=== PATIENT | female | born 1970 | race Caucasian/White ===

== ENCOUNTER 2017-04-22 01:29 | Emergency (ER) | payer MEDICAID ==
[2017-04-22] MEDS ORDERED: diphenhydrAMINE HCL 50 MG/ML VIAL IV ONE (01:57)
[2017-04-22] MEDS ORDERED: METHYLPREDNISOLONE SOD SUCC/PF 125 MG/2 ML VIAL IV ONE (01:57)
[2017-04-22] MEDS ORDERED: KETOROLAC TROMETHAMINE 30 MG/ML VIAL IV ONE (01:57)
[2017-04-22] MEDS ORDERED: NORMAL SALINE 1,000 ML IV ONE (01:57)
[2017-04-22] MEDS ORDERED: PROMETHAZINE HCL 25 MG in DEXTROSE 5 % IN WATER 50 ML IV ONE ×2 (01:57)
--- NOTE | 2017-04-22 02:01 | ERNOTE ---
Headache ER HPI - Narrative Date of Service: 04/22/17 - General Presenting Symptoms: headache Time Seen by Provider: 04/22/17 01:40 Source: patient - Immun/Allergies/Home Medications Immunizations: IMMUNIZATION HX Immunizations Up to Date Yes History of Influenza Vaccine No Hx Pneumococcal Vaccination No Allergies/Adverse Reactions: Allergies No Known Allergies Allergy (Unverified 04/22/17 01:43) Home Medications: HOME MEDICATIONS Acetaminophen with Codeine [Tylenol-Codeine 300 MG/30 MG] 2 each PO Q4H PRN [Last Taken Unknown] Cholecalciferol (Vitamin D3) [Vitamin D] 2,000 unit PO DAILY 12/31/12 [Last Taken 01/08/15 07:00 2000U] Multivitamin [Multivitamins] 1 each PO DAILY 12/31/12 [Last Taken 01/08/15 08: 00 1 tab] Promethazine HCl [Phenergan (Promethazine)] 25 mg PO Q4H PRN 12/31/12 [Last Taken 01/08/15 02:30 25mg] Nortriptyline HCl [Pamelor] 100 mg PO DAILY 11/27/14 [Last Taken 01/07/15 100mg] clonazePAM [Klonopin] 0.5 mg PO DAILY PRN 11/27/14 [Last Taken 01/07/15 20:00 .5mg] Methocarbamol [Robaxin] 750 mg PO Q4H PRN 08/28/15 [Last Taken Unknown] Botox 10/07/15 [Last Taken Unknown] OXcarbazepine [Trileptal] 300 mg PO BID 04/22/17 [Last Taken Unknown] - History of Present Illness Narrative: This is a 46-year-old female with a history of chronic daily migraines who comes to the emergency department with a primarily right sided retro-orbital headache. The patient states that the headache is been there for "years" but says that it has gotten really bad over the last 24 hours. The patient does have sensitivity to light. She has no nausea or vomiting. The patient had Botox injections of suboccipital muscles as well as shoulder muscles last week. Typically at home she uses Tylenol with codeine, Compazine, Robaxin to help with her symptoms. This has not helped her this time. No recent trauma. She denies any numbness or tingling. This is exactly the same quality as her previous headaches. Review of Systems - Review of Systems Constitutional: Present: no symptoms reported EYE: Present: no symptoms reported ENT: Present: no symptoms reported Respiratory: Present: no symptoms reported Cardiology: Present: no symptoms reported Gastrointestinal/Abdominal: Present: no symptoms reported Genitourinary: Present: no symptoms reported Musculoskeletal: Present: no symptoms reported Skin: Present: no symptoms reported Neurological: Present: no symptoms reported Endocrine: Present: no symptoms reported Hematologic/Lymphatic: Present: no symptoms reported Psych: Present: no symptoms reported All Other Systems: All systems neg except as marked - Patient's Past Medical History Patient History - Medical: Anxiety, Depression, Headache, Migraines Patient History - Cardiac/Respiratory: No pertinent hx Patient History - Cancer: No Hx of Cancer Patient History - Surgical Procedures: Cholecystectomy, Hysterectomy Patient History - Other: None - Family History Mother Family History - Medical: Diabetes Type 2 Family History - Cardiac/Respiratory: No pertinent hx Father Family History - Medical: Other Family History - Cardiac/Respiratory: No pertinent hx - Social History Living Situations: home Abuse History: No History of abuse Psych History: Hx of Anxiety, Hx of Depression Smoking Status: Former smoker Have you smoked in the past 12 months: No Do you dip or chew tobacco: No Alcohol Use: occasionally Drug Use: none - Immunizations Immunizations Up to Date: Yes Hx Pneumococcal Vaccination: No History of Influenza Vaccine: No Physical Exam - Physical Exam General Appearance: Present: wd/wn, alert, no apparent distress Head Exam: Present: normal inspection, no evidence of injury Eye Exam: Normal inspection: bilateral, PERRL: bilateral, EOMI: bilateral Ears, Nose, Throat: Present: normal ENT inspection, normal pharynx Neck: Present: normal inspection, nontender, other - the patient has suboccipital tender points right greater than left. Palpation reproduces the patient's headache with a retro-orbital component Respiratory: Present: no respiratory distress, normal breath sounds, no accessory muscle use, lungs clear Cardiovascular/Chest: Present: regular rate, rhythm, no murmur Gastrointestinal/Abdominal: Present: normal bowel sounds, nontender, nondistended, soft Rectal Exam: Present: nontender Back Exam: Present: normal inspection, normal range of motion Extremity Exam: Present: normal inspection, non-tender Neurological Exam: Present: alert, oriented, normal mood/affect Skin Exam: Present: normal color, warm/dry Lymphatic Exam: Present: no adenopathy ED Progress - Vital Signs Patient's Vital Signs:: I have reviewed the patient's vital signs. Vital Signs: Vital Signs 04/22/17 01:37 Temperature 37.2 C Pulse Rate 100 Respiratory 16 Rate Blood Pressure 153/99 O2 Sat by Pulse 95 Oximetry - Progress/Reassessment Chief Complaint: Headache Progress:: Improved Progress Note-Subjective: 04/22/17 03:00 The patient states that her headache is now approximately 90% resolved. She says she would like to go home and we will see if she continues to improve while she is at home. I've told her that if she develops new or worsening symptoms she should return to the ER. Departure Clinical Impression: Migraine, Migraine - Departure Disposition: Home self-care Condition: Stable Instructions: Migraine Headache, [id number] Additional Instructions: The medications that he received here in the emergency Department R Benadryl 50 mg intravenously Toradol 30 mg intravenously Solu-Medrol 125 mg intravenously X Compazine 25 mg IV. I did review these medicines and dosages so that in the future you can receive the same medicines as they seem to have done so well. Carlos Manuel migraine specialist and set up a follow-up appointment Return to the ER for any new or worrisome symptoms. Referrals: Augustine Pereira MD [Primary Care Provider] -
[2017-04-22] MEDS ORDERED: diphenhydrAMINE HCL 50 MG/ML VIAL ONE (02:16)
[2017-04-22] MEDS ORDERED: KETOROLAC TROMETHAMINE 30 MG/ML VIAL ONE (02:17)
[2017-04-22] MEDS ORDERED: METHYLPREDNISOLONE SOD SUCC/PF 125 MG/2 ML VIAL ONE (02:17)
[2017-04-22 03:00] VITALS: BP 150/86
== END 2017-04-22 03:21 | disposition home or self-care (01) ==
LOC: ER 01:29
DX: G43.909 Migraine, unspecified, not intractable, without status migrainosus (principal)

== ENCOUNTER 2017-04-27 05:23 | Emergency (ER) | payer MEDICAID ==
[2017-04-27] MEDS ORDERED: NORMAL SALINE 1,000 ML IV ONE (05:38)
[2017-04-27] MEDS ORDERED: KETOROLAC TROMETHAMINE 30 MG/ML VIAL IV ONE (05:38)
[2017-04-27] MEDS ORDERED: METHYLPREDNISOLONE SOD SUCC/PF 125 MG/2 ML VIAL IV ONE (05:38)
[2017-04-27] MEDS ORDERED: METHYLPREDNISOLONE SOD SUCC/PF 125 MG/2 ML VIAL ONE (05:47)
[2017-04-27] MEDS ORDERED: KETOROLAC TROMETHAMINE 30 MG/ML VIAL ONE (05:47)
--- NOTE | 2017-04-27 06:03 | ERNOTE ---
Headache ER HPI - General Presenting Symptoms: "migraine" Time Seen by Provider: 04/27/17 05:36 Source: patient Exam Limitations: no limitations - Immun/Allergies/Home Medications Immunizations: IMMUNIZATION HX Immunizations Up to Date Yes History of Influenza Vaccine No Hx Pneumococcal Vaccination No Allergies/Adverse Reactions: Allergies No Known Allergies Allergy (Verified 04/27/17 05:34) Home Medications: HOME MEDICATIONS Acetaminophen with Codeine [Tylenol-Codeine 300 MG/30 MG] 2 each PO Q4H PRN [Last Taken Unknown] Cholecalciferol (Vitamin D3) [Vitamin D] 2,000 unit PO DAILY 12/31/12 [Last Taken 01/08/15 07:00 2000U] Multivitamin [Multivitamins] 1 each PO DAILY 12/31/12 [Last Taken 01/08/15 08: 00 1 tab] Promethazine HCl [Phenergan (Promethazine)] 25 mg PO Q4H PRN 12/31/12 [Last Taken 01/08/15 02:30 25mg] Nortriptyline HCl [Pamelor] 100 mg PO DAILY 11/27/14 [Last Taken 01/07/15 100mg] clonazePAM [Klonopin] 0.5 mg PO DAILY PRN 11/27/14 [Last Taken 01/07/15 20:00 .5mg] Methocarbamol [Robaxin] 750 mg PO Q4H PRN 08/28/15 [Last Taken Unknown] Botox 10/07/15 [Last Taken Unknown] OXcarbazepine [Trileptal] 300 mg PO BID 04/22/17 [Last Taken Unknown] - Pain Pain Score: 9 - History of Present Illness Narrative: Pt had gradual onset of headache yesterday that increased throughout the day. She spoke with her neurologist who prescribed some "steroids". The patient went to pick them up but they were not ready. she was in this ED a week ago and had temporary relief from that but the headache came back after 7-8 hours. She has had extensive work up and treatments for her recurrent headaches. Timing of Headache: gradual Quality: Present: sharp, throbbing Severity Maximum: Present: severe Severity-Currently: Present: severe Headache frequency: Present: frequent headaches, chronic headaches Modifying Factors - (Improves): Reports: medication Associated Symptoms: Reports: nausea - initially but not now. Denies: vomiting , vision changes Exacerbated by:: Reports: light Prior Treament: Reports: recently seen, treated by physician, similar symptoms before Review of Systems - Review of Systems Constitutional: Absent: recent illness EYE: Absent: blurred vision, double vision ENT: Present: no symptoms reported Respiratory: Present: no symptoms reported Cardiology: Present: no symptoms reported Gastrointestinal/Abdominal: Present: no symptoms reported Musculoskeletal: Present: neck pain - right occiput, has had botox earlier this month Skin: Present: no symptoms reported Neurological: Present: See HPI. Absent: dizziness/light-headedness Endocrine: Present: no symptoms reported Hematologic/Lymphatic: Present: no symptoms reported Psych: Present: no symptoms reported - Patient's Past Medical History Patient History - Medical: Anxiety, Depression, Headache, Migraines Patient History - Cardiac/Respiratory: No pertinent hx Patient History - Cancer: No Hx of Cancer Patient History - Surgical Procedures: Cholecystectomy, Hysterectomy Patient History - Other: None - Family History Mother Family History - Medical: Diabetes Type 2 Family History - Cardiac/Respiratory: No pertinent hx Father Family History - Medical: Other Family History - Cardiac/Respiratory: No pertinent hx - Social History Living Situations: home Abuse History: No History of abuse Psych History: Hx of Anxiety, Hx of Depression Smoking Status: Former smoker Alcohol Use: occasionally Drug Use: none - Immunizations Immunizations Up to Date: Yes Hx Pneumococcal Vaccination: No History of Influenza Vaccine: No Physical Exam - Physical Exam General Appearance: Present: wd/wn, alert, mild distress Head Exam: Present: normal inspection, no evidence of injury Eye Exam: Normal inspection: bilateral, PERRL: bilateral, EOMI: bilateral Neck: Present: supple, full range of motion, tender lateral - right paraspinal muscles Respiratory: Present: no respiratory distress, no accessory muscle use Extremity Exam: Present: normal inspection, normal range of motion Neurological Exam: Present: alert, oriented, normal mood/affect Skin Exam: Present: normal color, warm/dry Lymphatic Exam: Present: no adenopathy ED Progress - Vital Signs Vital Signs: Vital Signs 04/27/17 05:23 Temperature 36.5 C Pulse Rate 111 H Respiratory 20 Rate Blood Pressure 164/101 O2 Sat by Pulse 96 Oximetry - Progress/Reassessment Chief Complaint: Headache Progress:: Improved Progress Note-Subjective: 04/27/17 06:32 Pt states she is much better. she asked about taking the oral steroids her neurologist prescribed, I suggested that she take that as prescribed. Departure Clinical Impression: Migraine without aura and responsive to treatment - Departure Disposition: Home Follow Up Needed Condition: Good Instructions: Recurrent Migraine Headache Additional Instructions: You were given Solu-medrol and Ketorolac today. You may fill and take the prescription your neurologist prescribed for you. Follow up with your neurologist or primary care doctor in 5-7 days or sooner if not improving Referrals: Augustine Pereira MD [Primary Care Provider] -
[2017-04-27 06:22] VITALS: BP 162/98
== END 2017-04-27 06:46 | disposition home or self-care (01) ==
LOC: ER 05:23
DX: G43.009 Migraine without aura, not intractable, without status migrainosus (principal); Z87.891 Personal history of nicotine dependence